=== PATIENT | female | born 1975 | race Caucasian/White ===

== ENCOUNTER 2020-06-01 14:36 | Inpatient (IN) | payer OTHER ==
[2020-06-01 15:00] VITALS: BP 127/76
--- NOTE | 2020-06-01 15:00 | NUR ---
PT ARRIVED TO MED/SURG ROOM 267 IN STABLE CONDITION VIA WHEELCHAIR ACCOMPANIED BY JOSH MELGOZA;PT AMBULATED TO STANDING SCALE AND BEDSIDE WITH A STEADY GAIT;WT AND VS OBTAINED BY JOSH TSANG;PT A&O X3,ORIENTED TO ROOM AND CALL LIGHT SYSTEM;REPORTS INCREASED LOWER BACK PAIN AND NAUSEA;PT WAS RECENTLY AT [facility] IN [place];RECORDS TO BE REQUESTED PER ORDER;PT REPORTS LOWER BACK PAIN TO BE A 9/10, PAIN SCALE AND REPORTING EDUCATED;RESPIRATIONS EVEN AND UNLABORED ON RA,CLEAR LUNG SOUNDS;ABDOMEN DISTENDED/SOFT ON PALPATION AND ACTIVE IN ALL 4 QUADRANTS.LAST BM 05/31/20;WEAK PEDAL PULSES;SKIN INTACT, SMALL CLOSED/HEALED AREAS NOTED THROUGHOUT BODY PT REPORTS THIS IS RELATED MEDICATION REACTION;UNABLE TO OBTAIN IV SITE AT THIS TIME,WILL HAVE ANOTHER NURSE ATTEMPT;ALLERGY BAND APPLIED TO LEFT WRIST;PT DENIES ANY ADDITIONAL NEEDS AT THIS TIME AND IS ENCOURAGED TO CALL FOR ASSISTANCE IF NEEDED;FALL PRECAUTIONS IN PLACE WITH BED IN THE LOWEST POSITION AND CALL LIGHT IN REACH;WILL CONTINUE TO MONITOR
[2020-06-01 15:19] LABS: URINE BILIRUBIN - DIPSTICK NEGATIVE (NEGATIVE); URINE BLOOD DIPSTICK NEGATIVE (NEGATIVE); URINE CLARITY CLEAR; URINE COLOR YELLOW; URINE GLUCOSE - DIPSTICK NEGATIVE (NEGATIVE); URINE KETONE NEGATIVE (NEGATIVE); URINE LEUK ESTERASE NEGATIVE (Negative); URINE NITRITE - DIPSTICK NEGATIVE (Negative); URINE PH 6.5 (4.5-8.0); URINE PROTEIN - DIPSTICK NEGATIVE (NEG-TRACE); URINE UROBILINOGEN - DIPSTICK 0.2 E.U./dL (0.2)
--- NOTE | 2020-06-01 17:15 | NUR ---
PT TRANSPORTED TO [facility] IN STABLE CONDITION VIA WHEELCHAIR ACCOMPANIED BY JOSH TSANG.
--- NOTE | 2020-06-01 17:32 | NUR ---
LAB AT BEDSIDE
--- NOTE | 2020-06-01 17:45 | NUR ---
PT REPORTS LOWER BACK PAIN RATING 9/10 ON THE PAIN SCALE AND REQUESTS PAIN MEDICATION,PT MEDICATED WITH PRN LORTAB 5/325MG PO AT THIS TIME;RAC IV SITE INFILTRATED, SITE REMAINS WITH CATHETER INTACT;NEW SITE TO BE ATTEMPTED BY ANOTHER NURSE;PT DENIES ANY ADDITIONAL NEEDS AT THIS TIME;ENCOURAGED TO CALL FOR ASSISTANCE IF NEEDED;CALL LIGHT IN REACH;WILL CONTINUE TO MONITOR
[2020-06-01 18:06] LABS: HEMOGLOBIN 11.3 g/dl (12.0-16.0); IMMATURE GRANULOCYTES 0.2 % (0.0-5.0); MEAN CELL VOLUME 88.7 fL CALC (80.0-100.0); MEAN CORPUSCULAR HGB 27.8 pG CALC (26.0-32.0); MEAN CORPUSCULAR HGB CONC 31.4 g/dL CAL (32.0-36.0); NEUT# 7.77 thou/uL (2.00-7.15); RED BLOOD COUNT 4.06 mill/uL (4.20-5.60); RED CELL DISTRI WIDTH 14.2 % (11.5-15.5)
--- NOTE | 2020-06-01 18:19 | NUR ---
UNABLE TO OBTAIN IV SITE.NOTIFIED ;PER OK TO LEAVE IV SITE OUT AT THIS TIME,NO NEED FOR CENTRAL LINE;PT EDUCATED ON ORDERS AND VERBALIZES UNDERSTANDING;WILL CONTINUE TO MONITOR
[2020-06-01 18:20] LABS: ALKALINE PHOSPHATASE 49 u/l (38-126); ANION GAP 9 (6-22 (CALC)); BILIRUBIN, TOTAL 0.5 mg/dL (0.0-1.4); BUN 12 mg/dL (7-17); BUN/CREATININE RATIO 14 (12-20 (CALC)); CARBON DIOXIDE 29 mmol/l (22-30); CHLORIDE 102 mmol/l (95-108); CREATININE 0.9 mg/dL (0.5-1.0); GFR > 60 ML/MIN (>=60 (CALC)); GFR FOR AFR.AMER. > 60 ML/MIN (>=60 (CALC)); POTASSIUM 3.2 mmol/l (3.5-5.1); SGOT/AST 22 u/l (14-36); SODIUM 137 mmol/l (137-146); TOTAL PROTEIN 6.9 g/dL (6.3-8.2)
[2020-06-01 19:00] VITALS: BP 117/62
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
--- NOTE | 2020-06-01 20:52 | NUR ---
SUSTAIN ENGINEER MADE AWARE THAT PATIENT WANTS TO GO AMA.
--- NOTE | 2020-06-01 20:53 | NUR ---
DR. PAULSON MADE AWARE THAT PATIENT WANTS TO GO AMA. V/S STABLE AT THIS TIME.
--- NOTE | 2020-06-01 21:00 | NUR ---
PATIENT SIGNED AMA PAPER, PATIENT ALERT ORIENTED, WALKED OUT OF THE ROOM WITH STEADY GAIT.
== END 2020-06-01 21:00 | disposition left against medical advice (07) | DRG 694 ==
LOC: MS2 14:36
PROVIDERS: ADMIT Internal Medicine; ATTEND Internal Medicine
DX: N20.0 Calculus of kidney (principal); C85.90 Non-Hodgkin lymphoma, unspecified, unspecified site; M54.9 Dorsalgia, unspecified; G89.29 Other chronic pain; Z87.442 Personal history of urinary calculi

== ENCOUNTER 2021-04-25 10:17 | Emergency (ER) | payer OTHER ==
[~2021-04-25] VITALS: Ht 170.2 cm; Wt 95.0 kg
[2021-04-25 12:01] LABS: HEMATOCRIT 41.1 % (37.0-47.0); HEMOGLOBIN 12.9 g/dl (12.0-16.0); IMMATURE GRANULOCYTES 0.3 % (0.0-5.0); MEAN CORPUSCULAR HGB 27.9 pG CALC (26.0-32.0); MEAN CORPUSCULAR HGB CONC 31.4 g/dL CAL (32.0-36.0); NEUT# 7.24 thou/uL (2.00-7.15); RED BLOOD COUNT 4.62 mill/uL (4.20-5.60)
[2021-04-25 12:03] LABS: URINE BILIRUBIN - DIPSTICK NEGATIVE (NEGATIVE); URINE BLOOD DIPSTICK TRACE-INTACT (NEGATIVE); URINE COLOR YELLOW; URINE GLUCOSE - DIPSTICK NEGATIVE (NEGATIVE); URINE KETONE NEGATIVE (NEGATIVE); URINE LEUK ESTERASE NEGATIVE (NEGATIVE); URINE PH 5.5 (4.5-8.0); URINE PROTEIN - DIPSTICK NEGATIVE (NEG-TRACE); URINE SPECIFIC GRAVITY >=1.030; URINE UROBILINOGEN - DIPSTICK 0.2 E.U./dL (0.2)
[2021-04-25 12:05] LABS: URINE NITRITE - DIPSTICK NEGATIVE (Negative)
[2021-04-25 12:31] LABS: ALBUMIN 4.3 g/dL (3.2-5.0); ALKALINE PHOSPHATASE 52 u/l (38-126); BILIRUBIN, TOTAL 0.4 mg/dL (0.0-1.4); BUN 14 mg/dL (7-17); BUN/CREATININE RATIO 21 (12-20 (CALC)); CARBON DIOXIDE 26 mmol/l (22-30); CHLORIDE 104 mmol/l (95-108); CREATININE 0.7 mg/dL (0.5-1.0); GFR > 60 ML/MIN (>=60 (CALC)); GFR FOR AFR.AMER. > 60 ML/MIN (>=60 (CALC)); SGOT/AST 32 u/l (14-36); SODIUM 138 mmol/l (137-146); TOTAL PROTEIN 7.7 g/dL (6.3-8.2)
[2021-04-25 12:42] LABS: ANION GAP 12 (6-22 (CALC))
[2021-04-25] MEDS ORDERED: ZOFRAN4 MG/TAB PO (14:06)
[2021-04-25] MEDS ORDERED: TORADOL PO (14:06)
[2021-04-25] MEDS ORDERED: LORTAB 5/3255 MG PO (14:06)
[2021-04-25] MEDS ORDERED: TAMSULOSIN0.4 MG PO (14:06)
[2021-04-25 14:11] VITALS: BP 154/76
== END 2021-04-25 14:17 | disposition home or self-care (01) | DRG 694 ==
LOC: ED 10:17
PROVIDERS: Emergency Medicine
DX: N20.0 Calculus of kidney (principal); F41.9 Anxiety disorder, unspecified; Z85.819 Personal history of malignant neoplasm of unspecified site of lip, oral cavity, and pharynx; Z87.442 Personal history of urinary calculi

== ENCOUNTER 2021-04-30 10:10 | Day surgery (SDC) | payer OTHER ==
[~2021-04-30] VITALS: Ht 170.2 cm; Wt 99.8 kg
[~2021-04-30 10:10] MED LIST: LORTAB 5/3255 MG PO; TAMSULOSIN0.4 MG PO; TORADOL PO; ZOFRAN4 MG/TAB PO
[2021-04-30 15:32] VITALS: BP 118/64
== END 2021-04-30 15:00 | disposition home or self-care (01) | DRG 661 ==
LOC: ORM 10:10
PROVIDERS: ATTEND Urology
PROC: 0TC08ZZ Extirpation of Matter from Right Kidney, Via Natural or Artificial Opening Endoscopic (ICD-10-PCS; principal; 2021-04-30)
PROC: 0T768DZ Dilation of Right Ureter with Intraluminal Device, Via Natural or Artificial Opening Endoscopic (ICD-10-PCS; 2021-04-30)
PROC: BT1D1ZZ Fluoroscopy of Right Kidney, Ureter and Bladder using Low Osmolar Contrast (ICD-10-PCS; 2021-04-30)
PROC: 05HB33Z Insertion of Infusion Device into Right Basilic Vein, Percutaneous Approach (ICD-10-PCS; 2021-04-30)
DX: N20.0 Calculus of kidney (principal); K21.9 Gastro-esophageal reflux disease without esophagitis; F32.9 Major depressive disorder, single episode, unspecified
CPT/HCPCS: J0131; J2710; Q9967

== ENCOUNTER 2022-07-26 09:17 | Emergency (ER) | payer OTHER ==
[2022-07-26] VITALS (9 sets, daily range): BP systolic 58–124; BP diastolic 38–87
[~2022-07-26] VITALS: Ht 170.2 cm; Wt 80.0 kg
[2022-07-26] MEDS ORDERED: XANAX0.25 MG PO (09:54)
[2022-07-26 10:02] LABS: HEMATOCRIT 38.7 % (37.0-47.0); HEMOGLOBIN 12.9 g/dl (12.0-16.0); MEAN CELL VOLUME 88.2 fL CALC (80.0-100.0); MEAN CORPUSCULAR HGB 29.4 pG CALC (26.0-32.0); MEAN CORPUSCULAR HGB CONC 33.3 g/dL CAL (32.0-36.0); NEUT# 5.24 thou/uL (2.00-7.15); RED BLOOD COUNT 4.39 mill/uL (4.20-5.60)
[2022-07-26 10:13] LABS: ALBUMIN 4.3 g/dL (3.2-5.0); ALKALINE PHOSPHATASE 49 u/l (38-126); ANION GAP 15 (6-22 (CALC)); BILIRUBIN, TOTAL 0.5 mg/dL (0.0-1.4); BUN 14 mg/dL (7-17); BUN/CREATININE RATIO 23 (12-20 (CALC)); CARBON DIOXIDE 22 mmol/l (22-30); CHLORIDE 108 mmol/l (95-108); CREATININE 0.6 mg/dL (0.5-1.0); GFR FOR AFR.AMER. > 60 ML/MIN (>=60 (CALC)); GFR OTHER RACES > 60 ML/MIN (>=60 (CALC)); LIPASE 70 u/l (23-300); POTASSIUM 3.4 mmol/l (3.5-5.1); SGOT/AST 23 u/l (14-36); SODIUM 141 mmol/l (137-146); TOTAL PROTEIN 7.2 g/dL (6.3-8.2)
[2022-07-26 11:03] LABS: URINE BILIRUBIN - DIPSTICK NEGATIVE (NEGATIVE); URINE BLOOD DIPSTICK LARGE (NEGATIVE); URINE COLOR YELLOW; URINE GLUCOSE - DIPSTICK NEGATIVE (NEGATIVE); URINE KETONE NEGATIVE (NEGATIVE); URINE LEUK ESTERASE NEGATIVE (NEGATIVE); URINE PROTEIN - DIPSTICK TRACE mg/dL (NEG-TRACE); URINE SPECIFIC GRAVITY >=1.030; URINE UROBILINOGEN - DIPSTICK 0.2 E.U./dL (0.2)
[2022-07-26 11:04] LABS: URINE NITRITE - DIPSTICK NEGATIVE (Negative)
[2022-07-26 11:05] LABS: URINE EPITHELIAL CELLS FEW EPI/hpf (0-FEW); URINE RBC 25-50 RBC/hpf (0-5)
[2022-07-26] MEDS ORDERED: ZOFRAN4 MG/TAB PO (12:26)
[2022-07-26] MEDS ORDERED: TORADOL PO (12:26)
== END 2022-07-26 12:47 | disposition home or self-care (01) | DRG 694 ==
LOC: ED 09:17
PROVIDERS: Family Medicine
DX: N20.1 Calculus of ureter (principal)

== ENCOUNTER 2024-02-12 06:32 | Day surgery (SDC) | payer OTHER ==
[~2024-02-12] VITALS: Ht 170.2 cm; Wt 83.9 kg
[~2024-02-12 06:32] MED LIST changes: +AMBIEN5 MG PO; +LEXAPRO10 MG PO; +MAGNESIUM PO; +METRONIDAZOLE500 MG PO; +XANAX0.25 MG PO
[2024-02-12] MEDS ORDERED: FAMOTIDINE 10MG/ML 2ML SDV IV ONE (06:59)
[2024-02-12] MEDS ORDERED: LACTATED RINGER'S 1,000 ML IV ONE (07:00)
[2024-02-12 09:08] VITALS: BP 116/77
[2024-02-12] MEDS ORDERED: GLYCOPYRROLATE 0.2 MG/ML IV ONE (18:07)
[2024-02-12] MEDS ORDERED: LIDOCAINE HCL 2% 2ML SDV IV ONE (18:07)
[2024-02-12] MEDS ORDERED: PROPOFOL 500 MG/50 ML VIAL IV ONE (18:07)
== END 2024-02-12 09:23 | disposition home or self-care (01) | DRG 951 ==
LOC: ENDO 06:32 → ORM 08:15 → ENDO 09:23
PROVIDERS: ATTEND Internal Medicine Gastroenterology
PROC: 0DBK8ZX Excision of Ascending Colon, Via Natural or Artificial Opening Endoscopic, Diagnostic (ICD-10-PCS; principal; 2024-02-12)
PROC: 0DBB8ZX Excision of Ileum, Via Natural or Artificial Opening Endoscopic, Diagnostic (ICD-10-PCS; 2024-02-12)
PROC: 0DBE8ZX Excision of Large Intestine, Via Natural or Artificial Opening Endoscopic, Diagnostic (ICD-10-PCS; 2024-02-12)
PROC: 0DB98ZX Excision of Duodenum, Via Natural or Artificial Opening Endoscopic, Diagnostic (ICD-10-PCS; 2024-02-12)
PROC: 0DB78ZX Excision of Stomach, Pylorus, Via Natural or Artificial Opening Endoscopic, Diagnostic (ICD-10-PCS; 2024-02-12)
PROC: 0DB58ZX Excision of Esophagus, Via Natural or Artificial Opening Endoscopic, Diagnostic (ICD-10-PCS; 2024-02-12)
DX: Z12.11 Encounter for screening for malignant neoplasm of colon (principal); D12.3 Benign neoplasm of transverse colon; K64.8 Other hemorrhoids; K29.60 Other gastritis without bleeding; K21.9 Gastro-esophageal reflux disease without esophagitis; K44.9 Diaphragmatic hernia without obstruction or gangrene; Z80.0 Family history of malignant neoplasm of digestive organs; Z79.899 Other long term (current) drug therapy